=== PATIENT | female | born 1970 | race Caucasian/White ===

== ENCOUNTER 2016-05-31 06:34 | Day surgery (SDC) | payer OTHER ==
[~2016-05-31] VITALS: Ht 172.7 cm; Wt 90.0 kg
[2016-05-31] VITALS (12 sets, daily range): BP systolic 108–122; BP diastolic 78–90; PULSE 60–74; RESP 9–16; O2SAT 98–100
[~2016-05-31 06:34] MED LIST: CeFAZolin 2 Gm/50 mL D5W IV Premix IV SCH; MULT-1018 PO; OXYC1TAB24 PO
[2016-05-31] MEDS ORDERED: Dexamethasone 4 mg/mL Inj ONE (06:35)
[2016-05-31] MEDS ORDERED: MetoCLOpramide 5 mg/mL 2 mL Inj ONE (06:35)
[2016-05-31] MEDS ORDERED: Propofol 10,000 mCg/mL 20 mL Inj ONE (06:35)
[2016-05-31] MEDS ORDERED: fentaNYL-PF 50 mCg/mL 2 mL Inj ONE (06:35)
[2016-05-31] MEDS ORDERED: Ondansetron 2 mg/mL 2 mL Inj ONE (06:35)
[2016-05-31] MEDS ORDERED: CeFAZolin Inj 2 gm / 50mL D5W IV ONE (06:47)
[2016-05-31] MEDS: Lactated Ringer's 1,000 ML IV SCH ×2 (06:56→07:26)
[2016-05-31] MEDS ORDERED: Lactated Ringer's 1,000 ML IV SCH (07:53)
[2016-05-31] MEDS ORDERED: Lactated Ringer's 500 ML IV PRN (07:53)
[2016-05-31] MEDS ORDERED: Ondansetron 2 mg/mL 2 mL Inj IVPUSH PRN (07:55)
[2016-05-31] MEDS ORDERED: Phenylephrine 10,000 mCg/mL Inj IVPUSH PRN (07:55)
[2016-05-31] MEDS ORDERED: Labetalol 5 mg/mL 4 mL Inj IV PRN (07:55)
[2016-05-31] MEDS ORDERED: fentaNYL-PF 50 mCg/mL 2 mL Inj IVPUSH PRN (07:55)
[2016-05-31] MEDS ORDERED: HYDROmorphone 1 mg/mL Inj IVPUSH PRN (07:55)
[2016-05-31] MEDS ORDERED: MetoCLOpramide 5 mg/mL 2 mL Inj IVPUSH PRN (07:55)
[2016-05-31] MEDS ORDERED: EPHEDrine Sulfate 50 mg/mL Inj IVPUSH PRN (07:55)
[2016-05-31] MEDS ORDERED: Atropine 0.4 mg/mL Inj IVPUSH PRN (07:55)
[2016-05-31] MEDS ORDERED: Ropivacaine-PF 0.5% 30 mL Inj INJ ONE (08:03)
[2016-05-31] MEDS ORDERED: hydrOXYzine Pamoate 25 mg Capsule PO PRN (09:10)
[2016-05-31] MEDS ORDERED: oxyCODONE-Acetamin 5-325 mg Tablet PO PRN (09:10)
[2016-05-31] MEDS ORDERED: Acetaminophen IV 1,000 MG in IV Premix 1 EACH IV PRN (09:10)
--- NOTE | 2016-05-31 09:24 | PCM.ANEP2 ---
Post Anesthesia Evaluation ASA/CMS Post Anesthesia VS in Patient's Normal Range?: Yes Resp Stable; Airway Patent?: Yes CV Function & Hydration Stable: Yes Mental Status Recovered?: Yes Pain control Satisfactory?: Yes N/V Control Satisfactory?: Yes Lance Liang MD May 31, 2016 09:24
--- NOTE | 2016-05-31 09:24 | PCM.ANEP1 ---
Post Anesthesia Phase 1 PACU Phase 1 Assessment Vital Signs Vital Signs Date Time Temp Pulse Resp B/P Pulse Ox O2 Delivery O2 Flow Rate FiO2 05/31/16 09:00 36.3 67 15 122/90 99 Room Air 05/31/16 08:55 70 10 119/80 99 Room Air 05/31/16 08:50 74 15 119/78 98 Room Air 05/31/16 08:45 72 13 118/85 100 Room Air 05/31/16 08:40 67 9 118/81 100 Simple Mask 8 05/31/16 08:38 36.8 67 10 115/78 100 Simple Mask 8 05/31/16 06:53 36.2 74 12 108/79 100 Room Air Anesthetic Administered: GA Level of Alertness: Awake, talking ROSALES's with Equal Strength: Yes Pain: No Nausea or Vomiting: No Oxygen Delivery: Simple Mask Lungs: Clear to Auscultation, Normal Air Movement Dermatome Level: Full Sensation Lance Liang MD May 31, 2016 09:24
--- NOTE | 2016-05-31 09:24 | PCM.HPANE ---
Patient Data Surgeon Admitting Provider: Attending Provider:Lance Mancini DO Primary Care Physician:Ellie Johnson Pa-C Other Provider:Jose Simmons Anesthesia Reason for Visit Left Great Toe Hallux Rigidus Ht/WT & BMI Height (Feet): 5 Height (Inches): 8 Weight (Kilograms): 90 Body Mass Index 30.00 Allergies Coded Allergies: No Known Allergies (Unverified , 05/29/16) Past Anesthesia History Anesthesia History: Denies:: Anesthesia Reactions, Malignant Hyperthermia Diabetes History Hx Diabetes?: No MRSA MRSA: No Medications Home Meds Incl Beta Gilbert: No Reported Medications oxyCODONE-Acetaminophen 5-325 mg 1 Each Tablet1 Tab PO Q4H PRN For Pain Ref 0 05/29/16 Multivitamin (Multi Vitamin Daily)1 Each Tablet1 Each PO DAILY 30 Days Ref 0 05/29/16 History History of ENT Problems?: No Hx of Heart Problems?: No Cardiovascular History: Denies:: Heart Murmur Hypertension Hx of Respiratory Problem?: Yes Respiratory History: Denies:: Use of C-PAP Machine (snores) Hx Neurologic Problems?: Yes Neurological History: Positive for:: Headaches Hx of GI Problems?: Yes Gastrointestinal History: Positive for:: Liver Disease (2008-elevated lft's/ jaundice ??r/t drugs) Hx of Problems?: No Female Hx: Denies:: Currently (HX TUBAL LIGATION) Skin History: Denies:: History Skin Disorders? 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 ??S/P ARTHROSCOPIC SURGERY) Hx of Psycho/Social Problems?: Yes Psycho Social History: Positive for:: Anxiety Hx Depression Denies:: Suicide Attempt (05/2015 SUICIDAL IDEATION/ED VISIT @ [facility]) Hx Surgeries?: Yes (C/S,BTL,??ARTHROSCOPIC SURGERY) Hx Any Other Health Problems?: Yes Other History: Denies:: Cancer Endocrine Disease Hospitalization Thyroid Disease History Blood Transfusions: Denies:: Blood Transfusions Hx Diabetes: No Hx Alcohol Use: Yes (HX ABUSE 05/2015)Hx Substance Use: Yes (HX METH 05/2015 )Have You Smoked inLast 12 mo: Yes Stop/Bang S-Snoring: Do You Snore Loudly: Yes T-Tired: feel tired, fatigued: No O-Obsered: Observed not breath: No P-Blood Pressure: treated: No B- Body Mass Index > 35 kg/m2: No A- Age over 50: No N- Neck Large Circumference: No G- Gender Male: No KANNAN Total Score: 1 Risk Assessment Category Category 1A: Patient has history of documented sleep apnea, and HAS NOT received any narcotic, sedative or anesthesia administration during this stay. Category 1B: Patient has history of documented sleep apnea, and HAS received any narcotic , sedative or anesthesia administration during this stay Category 2: Patient has SUSPECTED Obstructive Sleep Apnea, and HAS received any narcotic , sedative or anesthesia administration during this stay. Category 3: Patient has SUSPECTED Obstructive Sleep Apnea and HAS NOT received narcotic, sedative or anesthesia administration during this stay. Category 4: Outpatient in Procedural Areas with known sleep apnea or who screen positive for High Risk via the STOP/BANG questionnaire. Exam Exam Vital Signs Vital Signs Date Time Temp Pulse Resp B/P Pulse Ox O2 Delivery O2 Flow Rate FiO2 05/31/16 06:53 36.2 74 12 108/79 100 Room Air General Appearance: Alert, Oriented X3, Cooperative, No Acute Distress HEENT/AIRWAY: MP 2, Neck Movement (FROM), Mouth Opening (3 FBMO) Lungs: Clear to Auscultation, Normal Air Movement Heart: Exam Unremarkable, Regular Rate/Rhythm, No Murmurs/Rubs/Gallops Meds/Labs/Diagnostics Admission Meds Current Medications Lactated Ringer's (Lr) 1,000 ml @ 120 mls/hr Q8H20M IV Last administered on t 06:56; Start 05/31/16 at 05:00; Stop 05/31/16 at 13:19 Plan Impression Patient chart reviewed, patient interviewed and anesthestic plan with risks, benefits, and alternatives discussed, and informed consent obtained. NPO Status: 212905/30/16 ASA Physical Status: ASA2 Mod Systemic Disease Anesthetic Plan: GA Bene/Risks/Altern/Consents: Yes HP Complete Prior to Induction: Yes Lance Liang MD May 31, 2016 07:05
--- NOTE | 2016-05-31 09:34 | OP ---
[address] [address] OPERATIVE REPORT PATIENT: TAMARA MCKEON : 1970 MR#: [id number] ADMIT: 05/31/2016 JOB ID: [id number] DATE OF SURGERY: 05/31/2016 PREOPERATIVE DIAGNOSIS(ES): Left foot hallux rigidus of the great toe. POSTOPERATIVE DIAGNOSIS(ES): Left foot hallux rigidus of the great toe. PROCEDURE: Left foot dorsal cheilectomy. SURGEON: Lance Mancini D.O. ANESTHESIA: General. INDICATIONS: The patient is a 46-year-old female with left foot hallux rigidus which has failed conservative measures including shoe wear modification and cortisone injections. She wished to proceed with the dorsal cheilectomy. We discussed the risks, benefits, and possible complications of surgery. All questions were answered and she wished to proceed. PROCEDURE IN DETAIL: The patient is brought to the operating room. She was given a preoperative antibiotic and general anesthetic. The left lower extremity was sterilely prepped and draped. An incision was made over the dorsal lateral MTP joint after inflating a tourniquet for hemostasis and dissection was carefully carried through the subcutaneous tissue. Electrocautery was used for cauterizing small vessels. Care was taken to ensure that the dorsal sensory nerve branch was not damaged. The capsule was then incised in line with the skin incision over the MTP joint and carefully elevated off of the metatarsal. She was noted to have a prominent dorsal spur, and using a small saw we removed the upper 20%-25% of the articular surface with the dorsal spurring. I checked the saw cut with fluoroscopy and was pleased with the amount of resection and this allowed for the toe to dorsiflex to 90 degrees after the cut was made and to plantar flex to 60 degrees. Rasp was used to smooth the cut margins and the wound was then closed with a couple of 0-Vicryl sutures to close the capsule and two additional 2-0 Vicryl sutures to close and repair the capsule. The skin was then closed with interrupted 4-0 nylon suture. Naropin was added as an adjunct local anesthetic both locally and with an ankle block. Sterile dressings and a postoperative shoe were applied. The patient tolerated the procedure well. BLOOD LOSS: Was minimal. POSTOPERATIVE PROTOCOL: Have the patient use crutches with heel touch weightbearing and would like her to elevate her foot as much as possible over the next two weeks. Keep her dressing on for 5-7 days. Then she can remove it and followup in the clinic in two weeks for suture removal. 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
== END 2016-05-31 23:59 | disposition home or self-care (01) ==
LOC: SAS 06:34
PROVIDERS: ATTEND Orthopaedic Surgery
DX: M20.22 Hallux rigidus, left foot (principal)
CPT/HCPCS: 28289; 97116; J0131; J0690; J1100; J1170; J1885; J2270; J2405; J2765; J2795; J3010; J7120